=== PATIENT | female | born 1975 | race Caucasian/White ===

== ENCOUNTER → 2017-06-30 | Outpatient (CLI) | payer OTHER ==
[~2017-06-30] MED LIST: ADVIL200 MG PO; EXCEDRIN MIGRA1 EACH PO; LEVOTHROID (S125 MCG PO; TYLENOL EXTRA500 MG PO
== END | disposition disaster alternative care site (69) ==
LOC: GRAD 09:48
DX: E04.1 Nontoxic single thyroid nodule (principal)